=== PATIENT | male | born 1950 | race Caucasian/White ===

== ENCOUNTER 2025-08-17 12:48 | Outpatient (CLI) | payer MEDICARE, OTHER ==
--- NOTE | 2025-08-17 13:43 | RADIOLOGY REPORT ---
EXAM: CT CT HEAD INDICATION: CHRONIC SINUSITIS, UNSPECIFIED TECHNIQUE: CT of the head without intravenous contrast. Radiation Dose : 1. Head: CT Dose: CTDI volume is 46.4 mGy. Dose-length product is 789.64 mGy*cm The dose indicators for CT are the volume Computed Tomography (CT) Dose Index (CTDIvol) and the Dose Length Product (DLP), and are measured in units of mGy and mGy-cm, respectively. These indicators are not patient dose, but values generated from the CT scanner acquisition factors. The report includes radiation exposure data for exposures received during this examination. COMPARISON: None FINDINGS: There is no evidence of acute intracranial hemorrhage, extra-axial collection, mass effect, midline shift, herniation or hydrocephalus. The ventricles, sulci and cisterns are age appropriate. The spicer-white differentiation is intact. Patchy periventricular and subcortical white matter hypoattenuation is nonspecific but may be related to small vessel ischemic disease. The visualized paranasal sinuses and mastoid air cells are clear. The surrounding soft tissues and osseous structures are unremarkable. IMPRESSION: No acute intracranial abnormality. Radiation optimization: All CT scans at this facility use at least one of these dose optimization techniques: automated exposure control mA and/or kV adjustment per patient size (includes targeted exams where dose is matched to clinical indication) or iterative reconstruction.
== END 2025-08-17 23:59 | disposition home or self-care (01) ==
LOC: RAD 12:48
PROVIDERS: ATTEND Family Medicine
DX: I67.89 Other cerebrovascular disease (principal); J32.9 Chronic sinusitis, unspecified
CPT/HCPCS: 70450